=== PATIENT | male | born 1995 | race Caucasian/White ===

== ENCOUNTER 2017-10-02 14:09 | Inpatient (IN) | payer SELFPAY ==
[2017-10-02 15:52] LABS: Hematocrit 47.5 % (35.5-45.6); Hemoglobin 15.6 gm/dl (11.8-15.2); Mean Corpuscular HGB Conc 33 % (32-34); Mean Corpuscular Hemoglobin 29 pg (28-32); Mean Corpuscular Volume 89 fl (84-94); Platelet Count 226 K/mm3 (140-440); Red Blood Count 5.35 M/mm3 (3.65-5.03); Red Cell Distribution Width 13.4 % (13.2-15.2)
[2017-10-02 16:34] LABS: Alanine Aminotransferase 31 units/L (7-56); Albumin 4.8 g/dL (3.9-5); BUN/Creatinine Ratio 22; Blood Urea Nitrogen 20 mg/dL (9-20); Calcium 9.4 mg/dL (8.4-10.2); Hemolysis Index 12
[2017-10-02 17:32] LABS: Band Neutrophils # (Manual) 4.5 K/mm3; Basophils % (Manual) 0 % (0.0-1.8); Eosinophils % (Manual) 0 % (0.0-4.3); RBC Morphology Normal; Total Cells Counted 100
[2017-10-02] MEDS ORDERED: ZOFRAN IV ONE ×2 (18:36→19:05)
[2017-10-02] MEDS ORDERED: NACL 0.9% 1000 ML 1,000 ML IV ONE ×4 (18:36→22:18)
[2017-10-02] MEDS ORDERED: DILAUDID IV ONE ×3 (18:39→23:00)
[2017-10-02] MEDS ORDERED: BENADRYL IV ONE (19:05)
[2017-10-02] MEDS ORDERED: DILAUDID ONE (19:12)
[2017-10-02] MEDS ORDERED: ZOSYN/NS 4.5GM/100ML 4.5 GM/100 ML VIAL IV ONE (19:38)
[2017-10-02] MEDS ORDERED: BENADRYL ONE (21:24)
[2017-10-02] MEDS ORDERED: PEPCID IV ONE (21:24)
--- NOTE | 2017-10-02 22:03 | Emergency Department Report ---
HPI - General Chief Complaint: Abdominal Pain Time Seen by Provider: 10/02/17 18:41 - HPI HPI: The patient is a 22-year-old male who presents for evaluation of abdominal pain. The patient reports abdominal pain for the past one day, constant severe for the past 12 hours, 10/10 in severity, throbbing and sharp in quality, exacerbated with movement or bending over. He also reports associated nausea, intractable vomiting, and multiple episodes of loose watery stools. The patient denies fever, chills, night sweats, chest pain, dyspnea, cough, syncope, hemoptysis, blood in the stool, dark tarry stool, dysuria, hematuria, flank pain, inability to pass flatus. ED Past Medical Hx - Past Medical History Previous Medical History?: No - Surgical History Past Surgical History?: No - Social History Smoking Status: Never Smoker Substance Use Type: Marijuana ED Review of Systems ROS: Stated complaint: ABD PAIN AND PENIS PAIN Other details as noted in HPI Constitutional: denies: fever ENT: denies: throat or neck pain Respiratory: denies: cough, shortness of breath Cardiovascular: denies: chest pain Endocrine: denies unexplained weight loss or gain Gastrointestinal: reports abdominal pain, nausea Genitourinary: denies: dysuria Musculoskeletal: denies: leg swelling Skin: denies: rash Neurological: denies: headache Hematological/Lymphatic: denies: easy bleeding or easy bruising Psych: denies sadness or hopelessness Physical Exam - Physical Exam Vital Signs: Vital Signs 10/02/17 10/02/17 10/02/17 15:09 19:20 20:00 Temperature 97.9 F 99.9 F H Pulse Rate 114 H 120 H Respiratory 20 42 H 41 H Rate Blood Pressure 120/76 Blood Pressure 127/86 [Right] O2 Sat by Pulse 97 98 99 Oximetry Physical Exam: General: well-nourished, well-developed, no acute distress Head: Normocephalic, atraumatic Eyes: normal sclera ENT: Mucous membranes are pale and dry Neck: No neck stiffness, no cervical adenopathy Respiratory: Breath sounds equal bilaterally, no wheezing, rales, or rhonchi Cardio: S1 and S2 present, no murmurs, rubs, gallops, capillary refill is delayed Abdomen: Normoactive bowel sounds, soft abdomen, generalized tenderness to palpation present, + garding, no rebound tenderness Chest WALL/Back: No tenderness to palpation of the chest wall, no CVA tenderness with percussion Musc: No pitting edema Skin: No rash Neuro: no facial drooping, normal speech Psych: Normal affect ED Course Vital Signs 10/02/17 10/02/17 10/02/17 15:09 19:20 20:00 Temperature 97.9 F 99.9 F H Pulse Rate 114 H 120 H Respiratory 20 42 H 41 H Rate Blood Pressure 120/76 Blood Pressure 127/86 [Right] O2 Sat by Pulse 97 98 99 Oximetry ED Medical Decision Making - Lab Data Result diagrams: 10/02/17 15:32 10/02/17 15:32 - Medical Decision Making The patient was seen and examined by myself. The patient is placed on a telemetry monitor and continuous pulse ox. On initial evaluation, the patient was found to be in no distress. Evaluation orders are placed. IV access is established and the patient is given 2L normal saline fluid bolus and Zofran for nausea, and IV dilaudid for pain. Lab results acute exhibits elevated WBC of 20, elevated lactic acid of 8. Zosyn was ordered for treatment of suspected sepsis. CT scan abdomen and pelvis reveals appendicitis and free fluid in the abdomen. The on-call general surgeon Dr. Tan's contacted. He agreed to take the patient to the OR. The patient is admitted in serious condition. Critical care attestation.: If time is entered above; I have spent that time in minutes in the direct care of this critically ill patient, excluding procedure time. ED Disposition Clinical Impression: Appendicitis, acute, with peritonitis, Generalized abdominal pain, Severe sepsis, Nausea and vomiting in adult, Dehydration Disposition: OP ADMIT IP TO THIS HOSP Is pt being admited?: Yes Does the pt Need Aspirin: Yes Condition: Serious Referrals: PRIMARY CARE, [Primary Care Provider] - 3-5 Days Time of Disposition: 20:20
--- NOTE | 2017-10-02 22:04 | Cat Scan Report ---
FINAL REPORT PROCEDURE: CT ABDOMEN PELVIS W CON TECHNIQUE: Computerized axial tomography of the abdomen and pelvis was performed after the IV injection of iodinated nonionic contrast. HISTORY: abdominal pain COMPARISON: No prior studies are available for comparison. FINDINGS: Lower Lung metzger: No focal abnormality seen. Upper Abdomen: Liver density appears mildly diffusely decreased suggesting fatty infiltration. No discrete liver lesions are identified. The gallbladder, the adrenal glands, the pancreas and the spleen are unremarkable. Kidneys, Ureters and Urinary bladder: No abnormalities are identified. Retroperitoneum: Abdominal aorta appears normal. Nonspecific subcentimeter lymph nodes are seen in the retroperitoneum. No pathologically enlarged lymph nodes are identified. Bowel: There is no evidence of bowel obstruction. There is small to moderate amount of ascites collected in the right and left pericolonic gutters and extending into the lower pelvis. No free intraperitoneal gas is visualized. There is abnormal distension and thickening of the villalobos of the appendix with adjacent inflammatory change consistent with acute appendicitis. Discrete fluid collection to suggest an abscess is not visualized. Reproductive organs: The appendix is not appear to be enlarged. Other: No acute bony abnormalities are seen. IMPRESSION: There is abnormal distention and wall thickening seen in the appendix with adjacent inflammatory change consistent with acute appendicitis. There is small to moderate amount of ascites scattered throughout the pericolonic gutters and lower pelvis. I do not see a discrete fluid collection at this time to suggest an abscess. There is no free intraperitoneal gas. Liver density appears diffusely decreased suggesting fatty infiltration. No discrete liver lesions are identified. Critical value: These findings were discussed in detail with Dr. Shelton on 10/02/2017 at 10 p.m. Eastern Standard time.
[2017-10-02 23:21] LABS: INR 1.09 (0.87-1.13)
[2017-10-02 23:22] LABS: Partial Thromboplastin Time 29.1 Sec. (24.2-36.6)
--- NOTE | 2017-10-02 23:25 | XRay Report ---
FINAL REPORT PROCEDURE: XR CHEST 1V AP TECHNIQUE: Chest radiograph anteroposterior view. CPT 92091 HISTORY: preop COMPARISON: No prior studies are available for comparison. FINDINGS: Heart: Normal. Mediastinum/Vessels: Normal. Lungs/Pleural space: The lungs are hypoventilated. The diaphragms are mildly elevated. Lungs appear clear.. Bony thorax: No acute osseous abnormality. Life support devices: None. IMPRESSION: Lungs are mildly hypoventilated. No acute abnormalities are seen.
[2017-10-02 23:52] LABS: Bilirubin,Urine NEG (Negative); Blood,Urine SM (Negative); Color,Urine Straw (Yellow); Mucus,Urine FEW /HPF; Nitrite,Urine NEG (Negative); Protein,Urine <15 mg/dL mg/dL (Negative); Urobilinogen,Urine < 2.0 mg/dL (<2.0)
[2017-10-03] MEDS ORDERED: TYLENOL PO ONE (00:14)
[2017-10-03] MEDS ORDERED: NACL 0.9% 1000 ML 1,000 ML IV ONE (00:40)
--- NOTE | 2017-10-03 00:48 | History and Physical Report ---
History of Present Illness Date of examination: 10/03/17 Date of admission: 10/03/17 Chief complaint: Abdominal pain History of present illness: 22yo otherwise healthy male presents with acute onset of abdominal pain since 2am (10/02/17). reports that it was initially all over the abdomen and then localized to lower abdomen. +flatus. Hard BM previous night. No blood or dark stools. No diarrhea. No F/C. +poor appetite. No radiation of pain. Able to bend at hips without any problems. Past History Past Medical History: No medical history Past Surgical History: No surgical history Social history: denies: smoking (stopped 1 year ago), alcohol abuse Family history: no significant family history Medications and Allergies Allergies Allergy/AdvReac Type Severity Reaction Status Date / Time No Known Allergies Allergy Unverified 10/02/17 15:09 Home Medications Medication Instructions Recorded Confirmed Last Taken Type No Known Home Medications [No 10/03/17 10/03/17 Unknown History Reported Home Medications] Active Meds: Active Medications Sodium Chloride (Nacl 0.9% 1000 Ml) 1,000 mls @ 125 mls/hr IV ONCE ONE Stop: 10/03/17 08:39 None Review of Systems - Constitutional poor appetite, no fever, no chills, no sweats, no night sweats - EENT Ears, nose, mouth and throat: other (dry mouth and throat), no ear pain, no nasal congestion, no nasal discharge, no sinus pressure - Cardiovascular no chest pain, no shortness of breath - Respiratory no cough, no cough with sputum, no excessive sputum, no shortness of breath, no congestion - Gastrointestinal abdominal pain, loss of appetite, no diarrhea, no BRBPR, no melena, no hematochezia, no dyspepsia/bloating - Genitourinary no dysuria - Integumentary no rash - Neurological no head injury, no weakness, no syncope, no change in mentation, no confusion - Psychiatric no anxiety Exam Vital Signs Temp Pulse Resp BP Pulse Ox 97.9 F 114 H 20 120/76 97 10/02/17 15:09 10/02/17 15:09 10/02/17 15:09 10/02/17 15:09 10/02/17 15:09 - General physical appearance Positive: well developed, well nourished, no distress, no pain - Eyes Positive: normal occular movement - ENT Positive: normal pinna, other (dry oral mucosa) - Respiratory Positive: normal expansion, normal respiratory effort, clear to auscultation - Cardiovascular Rhythm: other (tachycardic) - Abdomen Abdomen: Present: soft, tender (most in the RLQ. some tenderness noted throughout, decreased when patient relaxed abdomen), bowel sounds normal, guarding (voluntary), other (no Rovsings. No pelvic shake tenderness). Absent: distended, rigid - Genitourinary Male Genitourinary: deferred - Neurologic Neurologic: alert and oriented to time, place and person, motor strength and sensation are grossly intact - Psychiatric Psychiatric: appropriate mood/affect, intact judgment & insight, cooperative Results - Labs 10/02/17 15:32 10/02/17 15:32 Abnormal lab results 10/02/17 10/02/17 10/02/17 Range/Units 15:32 15:32 18:42 WBC 20.4 H (4.5-11.0) K/mm3 RBC 5.35 H (3.65-5.03) M/mm3 Hgb 15.6 H (11.8-15.2) gm/dl Hct 47.5 H (35.5-45.6) % Lymphocytes % (Manual) 4.0 L (13.4-35.0) % Seg Neutrophils # Man 14.1 H (1.8-7.7) K/mm3 Lymphocytes # (Manual) 0.8 L (1.2-5.4) K/mm3 Chloride 95.9 L (98-107) mmol/L Glucose 160 H (75-100) mg/dL Lactic Acid 8.30 H* (0.7-2.0) mmol/L Total Protein 8.4 H (6.3-8.2) g/dL Ur Specific [place] (1.003-1.030) 10/02/17 10/02/17 Range/Units 22:05 23:01 WBC (4.5-11.0) K/mm3 RBC (3.65-5.03) M/mm3 Hgb (11.8-15.2) gm/dl Hct (35.5-45.6) % Lymphocytes % (Manual) (13.4-35.0) % Seg Neutrophils # Man (1.8-7.7) K/mm3 Lymphocytes # (Manual) (1.2-5.4) K/mm3 Chloride (98-107) mmol/L Glucose (75-100) mg/dL Lactic Acid 4.30 H* (0.7-2.0) mmol/L Total Protein (6.3-8.2) g/dL Ur Specific [place] > 1.059 H (1.003-1.030) Diabetes panel 10/02/17 Range/Units 15:32 Sodium 138 (137-145) mmol/L Potassium 4.0 (3.6-5.0) mmol/L Chloride 95.9 L (98-107) mmol/L Carbon Dioxide 25 (22-30) mmol/L BUN 20 (9-20) mg/dL Creatinine 0.9 (0.8-1.5) mg/dL Glucose 160 H (75-100) mg/dL Calcium 9.4 (8.4-10.2) mg/dL AST 22 (5-40) units/L ALT 31 (7-56) units/L Alkaline Phosphatase 57 (35-129) units/L Total Protein 8.4 H (6.3-8.2) g/dL Albumin 4.8 (3.9-5) g/dL Calcium panel 10/02/17 Range/Units 15:32 Calcium 9.4 (8.4-10.2) mg/dL Albumin 4.8 (3.9-5) g/dL Pituitary panel 10/02/17 Range/Units 15:32 Sodium 138 (137-145) mmol/L Potassium 4.0 (3.6-5.0) mmol/L Chloride 95.9 L (98-107) mmol/L Carbon Dioxide 25 (22-30) mmol/L BUN 20 (9-20) mg/dL Creatinine 0.9 (0.8-1.5) mg/dL Glucose 160 H (75-100) mg/dL Calcium 9.4 (8.4-10.2) mg/dL Adrenal panel 10/02/17 Range/Units 15:32 Sodium 138 (137-145) mmol/L Potassium 4.0 (3.6-5.0) mmol/L Chloride 95.9 L (98-107) mmol/L Carbon Dioxide 25 (22-30) mmol/L BUN 20 (9-20) mg/dL Creatinine 0.9 (0.8-1.5) mg/dL Glucose 160 H (75-100) mg/dL Calcium 9.4 (8.4-10.2) mg/dL Total Bilirubin 0.80 (0.1-1.2) mg/dL AST 22 (5-40) units/L ALT 31 (7-56) units/L Alkaline Phosphatase 57 (35-129) units/L Total Protein 8.4 H (6.3-8.2) g/dL Albumin 4.8 (3.9-5) g/dL - Imaging CT scan - abdomen: report reviewed (Agrees with assessment. Small amount of fluid in abdomen. No free air. Appendix is retrocecal.), image reviewed Assessment and Plan - Patient Problems (1) Appendicitis, acute, with peritonitis Onset Date: ~10/02/17 Current Visit: Yes Status: Acute Plan to address problem: Pt in need of lap appy. Discussed procedure, risks, and benefits. Discussed alternatives. Recommend surgery after patient resuscitated. I think he will do better rochelle-operatively if we resuscitate him first. I think he is stable enough for that. All questions answered. Consent obtained. (2) Dehydration Onset Date: ~10/02/17 Current Visit: Yes Status: Acute Plan to address problem: Have asked Dr. Shelton to give additional fluid. He is responding with decrease in lactate. His labs suggest very severe dehydration. Would benefit from resuscitation prior to surgery. Will run IVF at 250cc/hr. Explained to patient.
[2017-10-03] MEDS ORDERED: TYLENOL ONE (01:45)
[2017-10-03] MEDS ORDERED: NACL 0.9% 1000 ML 2,000 ML ONE (01:49)
[2017-10-03] MEDS ORDERED: NACL 0.9% 1000 ML 1,000 ML IV SCH ×2 (02:16→15:00)
[2017-10-03] MEDS: TORADOL IV SCH ×4 (03:07→22:00)
[2017-10-03] MEDS: ZOSYN/NS 4.5GM/100ML 4.5 GM/100 ML VIAL IV SCH ×3 (06:29→22:30)
--- NOTE | 2017-10-03 08:38 | Anesthesia Day of Surgery ---
Anesthesia Day of Surgery - Day of Surgery Patient Examined: Yes Patient H&P Reviewed: Yes Patient is NPO: Yes
--- NOTE | 2017-10-03 08:38 | Anesthesia Consultation ---
Anesthesia Consult and Med Hx Date of service: 10/03/17 - Airway Anesthetic Teeth Evaluation: Good ROM Head & Neck: Adequate Mental/Hyoid Distance: Adequate Mallampati Class: Class II Intubation Access Assessment: Good - Pulmonary Exam CTA: Yes - Cardiac Exam Cardiac Exam: No Murmur - Pre-Operative Health Status ASA Pre-Surgery Classification: ASA1 Proposed Anesthetic Plan: General - Pulmonary Hx Asthma: No COPD: No Hx Pneumonia: No - Endocrine Hx End Stage Renal Disease: No
[2017-10-03] MEDS ORDERED: VERSED IV NR (09:00)
[2017-10-03] MEDS ORDERED: PEPCID PO NR (09:00)
--- NOTE | 2017-10-03 09:12 | Progress Note ---
Assessment and Plan - Patient Problems (1) Appendicitis, acute, with peritonitis Onset Date: ~10/02/17 Current Visit: Yes Status: Acute Plan to address problem: to OR this Am. Delayed due to anesthesia issue. Pt doing ok. Answered questions. He is nervous about surgery. (2) Dehydration Onset Date: ~10/02/17 Current Visit: Yes Status: Acute Plan to address problem: Hydrated well overnight. Looks better. reassess after surgery Subjective Date of service: 10/03/17 Patient Reports: Positive: no new complaints, feels better (pain meds helped a lot), voiding w/o difficulty (reports that he was able to finally void easily) Objective Vital Signs - 12hr 10/02/17 10/02/17 10/02/17 21:32 22:00 22:30 Temperature Pulse Rate 126 H 132 H Respiratory 37 H 26 H Rate Blood Pressure 133/87 133/87 133/87 O2 Sat by Pulse 98 98 Oximetry 10/02/17 10/02/17 10/03/17 23:00 23:31 00:01 Temperature Pulse Rate 125 H 125 H 131 H Respiratory 40 H 19 18 Rate Blood Pressure 133/87 133/87 133/87 O2 Sat by Pulse 94 94 Oximetry 10/03/17 10/03/17 10/03/17 00:17 00:31 01:01 Temperature Pulse Rate 130 H 130 H 130 H Respiratory 24 19 27 H Rate Blood Pressure 133/87 133/87 133/87 O2 Sat by Pulse 95 94 95 Oximetry 10/03/17 10/03/17 10/03/17 01:31 02:01 08:10 Temperature 98 F Pulse Rate 129 H 123 H 90 Respiratory 21 17 22 Rate Blood Pressure 133/87 133/87 105/62 O2 Sat by Pulse 94 94 99 Oximetry 10/03/17 08:37 Temperature 98 F Pulse Rate 96 H Respiratory 22 Rate Blood Pressure 105/62 O2 Sat by Pulse 99 Oximetry - General physical appearance well developed, well nourished, no distress, no pain, other (nervous) - Eyes normal occular movement - Respiratory normal expansion, normal respiratory effort - Psychiatric oriented to time, oriented to person, oriented to place, speech is normal - Labs 10/02/17 15:32 10/02/17 15:32 Diabetes panel 10/02/17 Range/Units 15:32 Sodium 138 (137-145) mmol/L Potassium 4.0 (3.6-5.0) mmol/L Chloride 95.9 L (98-107) mmol/L Carbon Dioxide 25 (22-30) mmol/L BUN 20 (9-20) mg/dL Creatinine 0.9 (0.8-1.5) mg/dL Glucose 160 H (75-100) mg/dL Calcium 9.4 (8.4-10.2) mg/dL AST 22 (5-40) units/L ALT 31 (7-56) units/L Alkaline Phosphatase 57 (35-129) units/L Total Protein 8.4 H (6.3-8.2) g/dL Albumin 4.8 (3.9-5) g/dL Calcium panel 10/02/17 Range/Units 15:32 Calcium 9.4 (8.4-10.2) mg/dL Albumin 4.8 (3.9-5) g/dL Pituitary panel 10/02/17 Range/Units 15:32 Sodium 138 (137-145) mmol/L Potassium 4.0 (3.6-5.0) mmol/L Chloride 95.9 L (98-107) mmol/L Carbon Dioxide 25 (22-30) mmol/L BUN 20 (9-20) mg/dL Creatinine 0.9 (0.8-1.5) mg/dL Glucose 160 H (75-100) mg/dL Calcium 9.4 (8.4-10.2) mg/dL Adrenal panel 10/02/17 Range/Units 15:32 Sodium 138 (137-145) mmol/L Potassium 4.0 (3.6-5.0) mmol/L Chloride 95.9 L (98-107) mmol/L Carbon Dioxide 25 (22-30) mmol/L BUN 20 (9-20) mg/dL Creatinine 0.9 (0.8-1.5) mg/dL Glucose 160 H (75-100) mg/dL Calcium 9.4 (8.4-10.2) mg/dL Total Bilirubin 0.80 (0.1-1.2) mg/dL AST 22 (5-40) units/L ALT 31 (7-56) units/L Alkaline Phosphatase 57 (35-129) units/L Total Protein 8.4 H (6.3-8.2) g/dL Albumin 4.8 (3.9-5) g/dL
[2017-10-03] MEDS ORDERED: XYLOCAINE 1% 20 mL ONE (09:29)
[2017-10-03] MEDS ORDERED: MARCAINE 0.5% 30 ML INFILTRATI ONE (09:30)
[2017-10-03] MEDS ORDERED: SUBLIMAZE ONE (10:02)
[2017-10-03] MEDS ORDERED: DIPRIVAN 10 MG/ML IV ONE (10:02)
[2017-10-03] MEDS ORDERED: MARCAINE 0.5% INFILTRATI ONE (10:51)
[2017-10-03] MEDS ORDERED: NACL 0.9% IR ONE ×4 (10:52→10:56)
[2017-10-03] MEDS ORDERED: XYLOCAINE 1% 20 mL INFILTRATI ONE (10:52)
[2017-10-03] MEDS ORDERED: NEO SYNEPHRINE ONE (10:58)
[2017-10-03] MEDS ORDERED: XYLOCAINE MPF 2% ONE (10:58)
[2017-10-03] MEDS ORDERED: DECADRON ONE (10:59)
[2017-10-03] MEDS ORDERED: ZOFRAN ONE (10:59)
[2017-10-03] MEDS ORDERED: ROBINUL ONE (10:59)
[2017-10-03] MEDS ORDERED: NEOSTIGMINE ONE (10:59)
[2017-10-03] MEDS ORDERED: ZEMURON IV ONE (10:59)
[2017-10-03] MEDS ORDERED: NORCO 5/325 PO PRN (12:50)
[2017-10-03] MEDS: DILAUDID IV PRN ×3 (14:17→21:28)
--- NOTE | 2017-10-03 14:36 | Progress Note ---
Assessment and Plan - Patient Problems (1) Appendicitis, acute, with peritonitis Onset Date: ~10/02/17 Current Visit: Yes Status: Acute Plan to address problem: s/p lap appy and partial cecectomy. Pt stable. Advance diet as tolerated. Encourage ambulation and IS. continue Abx. Monitor DAYDAY drain (2) Dehydration Onset Date: ~10/02/17 Current Visit: Yes Status: Acute Plan to address problem: Cont IVF, but slow down rate. d/c when taking PO well. BMP in AM Subjective Date of service: 10/03/17 Narrative: reports incisional pain. Pre-op abdominal pain is better Objective Vital Signs - 12hr 10/03/17 10/03/17 10/03/17 08:10 08:37 12:37 Temperature 98 F 98 F 98.6 F Pulse Rate 90 96 H 84 Respiratory 22 22 12 Rate Blood Pressure 105/62 105/62 114/67 O2 Sat by Pulse 99 99 100 Oximetry 10/03/17 10/03/17 10/03/17 12:40 12:45 12:50 Temperature Pulse Rate 83 79 80 Respiratory 14 16 14 Rate Blood Pressure 116/68 121/70 118/70 O2 Sat by Pulse 99 100 100 Oximetry 10/03/17 10/03/17 10/03/17 13:00 13:15 13:30 Temperature Pulse Rate 88 87 86 Respiratory 13 14 14 Rate Blood Pressure 112/69 102/71 120/77 O2 Sat by Pulse 96 94 98 Oximetry 10/03/17 10/03/17 13:49 13:50 Temperature 97.2 F L 97.2 F L Pulse Rate 83 84 Respiratory 18 18 Rate Blood Pressure 106/71 106/71 O2 Sat by Pulse 96 96 Oximetry - General physical appearance well developed, well nourished, no distress, other (appears tired) - Eyes normal occular movement - Respiratory normal respiratory effort - Labs 10/02/17 15:32 10/02/17 15:32 Diabetes panel 10/02/17 Range/Units 15:32 Sodium 138 (137-145) mmol/L Potassium 4.0 (3.6-5.0) mmol/L Chloride 95.9 L (98-107) mmol/L Carbon Dioxide 25 (22-30) mmol/L BUN 20 (9-20) mg/dL Creatinine 0.9 (0.8-1.5) mg/dL Glucose 160 H (75-100) mg/dL Calcium 9.4 (8.4-10.2) mg/dL AST 22 (5-40) units/L ALT 31 (7-56) units/L Alkaline Phosphatase 57 (35-129) units/L Total Protein 8.4 H (6.3-8.2) g/dL Albumin 4.8 (3.9-5) g/dL Calcium panel 10/02/17 Range/Units 15:32 Calcium 9.4 (8.4-10.2) mg/dL Albumin 4.8 (3.9-5) g/dL Pituitary panel 10/02/17 Range/Units 15:32 Sodium 138 (137-145) mmol/L Potassium 4.0 (3.6-5.0) mmol/L Chloride 95.9 L (98-107) mmol/L Carbon Dioxide 25 (22-30) mmol/L BUN 20 (9-20) mg/dL Creatinine 0.9 (0.8-1.5) mg/dL Glucose 160 H (75-100) mg/dL Calcium 9.4 (8.4-10.2) mg/dL Adrenal panel 10/02/17 Range/Units 15:32 Sodium 138 (137-145) mmol/L Potassium 4.0 (3.6-5.0) mmol/L Chloride 95.9 L (98-107) mmol/L Carbon Dioxide 25 (22-30) mmol/L BUN 20 (9-20) mg/dL Creatinine 0.9 (0.8-1.5) mg/dL Glucose 160 H (75-100) mg/dL Calcium 9.4 (8.4-10.2) mg/dL Total Bilirubin 0.80 (0.1-1.2) mg/dL AST 22 (5-40) units/L ALT 31 (7-56) units/L Alkaline Phosphatase 57 (35-129) units/L Total Protein 8.4 H (6.3-8.2) g/dL Albumin 4.8 (3.9-5) g/dL
--- NOTE | 2017-10-03 21:02 | Post Anesthesia Evaluation ---
- Post Anesthesia Evaluation Patient Participated: Yes Airway Patent: Yes Stable Respiratory Function: Yes Nausea/Vomiting: No Temp > 96.8F: Yes Pain Manageable: Yes Adequeate Hydration: Yes Anesthesia Complications: No Block Receding Appropriately: Not Applicable Patient on Ventilator: No
[2017-10-03] MEDS: ZOFRAN IV PRN (21:28)
[2017-10-03] MEDS: LOVENOX SUB-Q SCH (21:34)
--- NOTE | 2017-10-03 21:54 | Operative Report ---
PREOPERATIVE DIAGNOSIS: Acute appendicitis. POSTOPERATIVE DIAGNOSIS: Acute ruptured appendicitis with purulent fluid in the abdomen. PROCEDURES: 1. Laparoscopic appendectomy. 2. Laparoscopic partial cecectomy. ATTENDING PHYSICIAN: Izabela Tan MD ANESTHESIA: General. ESTIMATED BLOOD LOSS: 25 mL. FLUIDS: 1 liter. URINE OUTPUT: 150 mL. FINDINGS: Thickened inflamed appendix with purulent discharge on the surface. There was a necrotic base with perforation measuring approximately 1 cm. There is a moderate amount of purulent fluid throughout the abdomen. The rest of the abdomen was normal. Cecum appeared mildly inflamed at the base. SPECIMEN: Appendix and portion of cecum. DRAINS: DAYDAY drain. COMPLICATIONS: None. DISPOSITION: Stable, transferred to Recovery Room. INDICATIONS: This is a 22-year-old male who presented with about a 1-day history of acute onset of abdominal pain that progressively got worse. He presented to the Emergency Room. A CT scan showed a thickened appendix. The patient appeared severely dehydrated and was in need of resuscitation. As the patient was overall fairly stable, we elected to resuscitate the patient and then proceed with surgery today. The risks, benefits were explained in detail to the patient. Risks include were not limited to infection, bleeding, pain, injury to structures, possible need for further surgery in the future. The patient understood and consented. OPERATIVE NOTE: The patient was brought to the operating room and placed on the table in supine position. After adequate general anesthesia was given, the patient was prepped and draped in the usual sterile fashion. Zosyn has already been given. He received his recent dose on the floor. SCDs were in place. I began by insufflating the abdomen using a Veress needle, it was inserted in the left upper quadrant approximately 3 fingerbreadths below the costal margin. I was able to insufflate on the first attempt. Then, using the Optiview technique, I placed a 5 mm port in the left lower quadrant. I entered the peritoneal cavity safely. I examined the Veress needle location. There was no evidence of any injury to the underlying structures. I then proceeded to place a 5 mm port at the umbilicus and a 10 mm port at the suprapubic location in the midline. I began initially by trying to irrigate and suction out some of the purulent fluid. We then proceeded to evaluate the cecum and the appendix, it was lateral and partially retrocecal in its position. I was able to mobilize it by dissecting through the mesoappendix using a LigaSure device. This was done successfully without any evidence of any bleeding. Once I reached the base, I then used a 45 mm GI Blue laparoscopic stapler to divide the base. Unfortunately, due to the thickened tissue, it is difficult to get a portion of the cecum at the same time. Therefore, I divided the appendix at the base using the blue load. I then used two more loads to remove a portion of the cecum that had the necrotic appendiceal base that extended onto the cecum as well as the perforation site. I was able to remove a small portion of cecum, taking care to make sure that I was not near the ileocecal valve and I was lateral to it. Examination of the staple line showed it to be relatively straight. There was no significant angulations from the two staple sites. It was hemostatic. There was one portion of the mesoappendix that did have some pulsation. I recauterized that with the LigaSure device. Everything looked hemostatic and intact. I thoroughly washed out the abdomen with 5 liters of crystalloid fluid. We turned the patient in multiple different directions to try to get all the fluid collections. At the end, it appeared that all 4 quadrants had a fairly clean fluid as a precaution. Due to his high risk for abscess formation, I left a drain in the pelvis and brought out the left lower quadrant. I closed the fascia at the suprapubic site with a fascial closure device using 2-0 Vicryl stitches. It was airtight. At the end, I injected an additional local. I used a combination of 1% lidocaine and 0.5% Marcaine that I injected before insertion of ports and then at the very end. Everything looked very good at the end of the case. I was very pleased compared to what we started with. He is at high risk for subsequent intra-abdominal infection due to the perforated appendicitis as well as the extensive contamination with the fluid. I will continue antibiotics for now until we see that he is at least afebrile and without a white count for 48 hours. All this has been explained to the patient and the parents. All counts were correct at the end of the case. JOB# [id number] FELICITA/ELENA
[2017-10-04] MEDS: TORADOL IV SCH ×4 (02:10→22:54)
[2017-10-04] MEDS: ZOFRAN IV PRN (06:30)
[2017-10-04] MEDS: DILAUDID IV PRN (06:40)
[2017-10-04] MEDS: ZOSYN/NS 4.5GM/100ML 4.5 GM/100 ML VIAL IV SCH ×3 (06:59→22:55)
[2017-10-04 08:15] LABS: Hematocrit 35.8 % (35.5-45.6); Mean Corpuscular HGB Conc 34 % (32-34); Mean Corpuscular Hemoglobin 30 pg (28-32); Mean Corpuscular Volume 89 fl (84-94); Platelet Count 135 K/mm3 (140-440); Red Blood Count 4.02 M/mm3 (3.65-5.03); Red Cell Distribution Width 13.1 % (13.2-15.2)
[2017-10-04 08:48] LABS: BUN/Creatinine Ratio 18; Blood Urea Nitrogen 14 mg/dL (9-20); Calcium 8.3 mg/dL (8.4-10.2); Hemolysis Index 2
--- NOTE | 2017-10-04 10:30 | Progress Note ---
Assessment and Plan - Patient Problems (1) Appendicitis, acute, with peritonitis Onset Date: ~10/02/17 Current Visit: Yes Status: Acute Plan to address problem: s/p lap appy and partial cecectomy POD#1. Pt stable. Advance diet as tolerated. Will advance to Full Liquids today Encourage ambulation and IS. continue Abx. Would like to see WBC normalize. Will check again on Monday Monitor DAYDAY drain (2) Dehydration Onset Date: ~10/02/17 Current Visit: Yes Status: Acute Plan to address problem: Much improved. will d/c IVF and allow patient to hydrate by mouth. Subjective Date of service: 10/04/17 Patient Reports: Positive: feels better (Feels much better compared to night of admission. Able to walk. Would like to have more to drink. Would like to go home soon. Able to urinate normally after straight cath last night. ), pain is less, tolerating liquids well. Negative: nausea, vomiting, fever Objective Vital Signs - 12hr 10/04/17 10/04/17 10/04/17 00:05 05:29 08:11 Temperature 98.1 F 98.2 F 98.0 F Pulse Rate 118 H 111 H 98 H Respiratory 16 16 20 Rate Blood Pressure 113/70 114/66 Blood Pressure 98/52 [Right] O2 Sat by Pulse 95 95 97 Oximetry - General physical appearance well developed, well nourished, no distress, no pain, other (Looks much better. appears more relaxed and with more energy) - Eyes normal occular movement - Respiratory normal respiratory effort - Abdomen soft (much softer than before), bowel sounds hypoactive, distended (mild), not guarding, other (Incisions C/D/I. Abd much softer. Much less tender. DAYDAY with serosang, slightly thick fluid. No purulent appearance. ) - Neurologic normal coordination - Psychiatric oriented to time, oriented to person, oriented to place, speech is normal, memory intact - Labs 10/04/17 07:28 10/04/17 07:28 Diabetes panel 10/04/17 Range/Units 07:28 Sodium 140 (137-145) mmol/L Potassium 3.8 (3.6-5.0) mmol/L Chloride 103.6 (98-107) mmol/L Carbon Dioxide 23 (22-30) mmol/L BUN 14 (9-20) mg/dL Creatinine 0.8 (0.8-1.5) mg/dL Glucose 115 H (75-100) mg/dL Calcium 8.3 L (8.4-10.2) mg/dL Calcium panel 10/04/17 Range/Units 07:28 Calcium 8.3 L (8.4-10.2) mg/dL Pituitary panel 10/04/17 Range/Units 07:28 Sodium 140 (137-145) mmol/L Potassium 3.8 (3.6-5.0) mmol/L Chloride 103.6 (98-107) mmol/L Carbon Dioxide 23 (22-30) mmol/L BUN 14 (9-20) mg/dL Creatinine 0.8 (0.8-1.5) mg/dL Glucose 115 H (75-100) mg/dL Calcium 8.3 L (8.4-10.2) mg/dL Adrenal panel 10/04/17 Range/Units 07:28 Sodium 140 (137-145) mmol/L Potassium 3.8 (3.6-5.0) mmol/L Chloride 103.6 (98-107) mmol/L Carbon Dioxide 23 (22-30) mmol/L BUN 14 (9-20) mg/dL Creatinine 0.8 (0.8-1.5) mg/dL Glucose 115 H (75-100) mg/dL Calcium 8.3 L (8.4-10.2) mg/dL
[2017-10-04] MEDS: LACTINEX PO SCH ×2 (13:30→22:54)
[2017-10-04] MEDS: LOVENOX SUB-Q SCH (22:54)
[2017-10-05] MEDS: TORADOL IV SCH ×4 (03:12→23:39)
[2017-10-05] MEDS: ZOSYN/NS 4.5GM/100ML 4.5 GM/100 ML VIAL IV SCH ×3 (05:28→23:34)
[2017-10-05] MEDS: LACTINEX PO SCH (09:47)
--- NOTE | 2017-10-05 10:27 | Progress Note ---
Assessment and Plan - Patient Problems (1) Appendicitis, acute, with peritonitis Onset Date: ~10/02/17 Current Visit: Yes Status: Acute Plan to address problem: s/p lap appy and partial cecectomy POD#2. Pt HD stable. I think that his is pain is related to lovenox injection and minimal use of pain meds. Will give pain meds this AM and reassess later today. have to be worried about abscess development as he is at high risk from his perforation/ contamination. His hemodynamics, drain output, vitals, return of bowel function , and verbal report of doing better seem to go against abscess formation. If there is still a concern later today, will consider new labs and possibly CT scan. Continue Full Liquids for now. Encourage ambulation and IS. continue Abx. Would like to see WBC normalize. Will check again on Monday Monitor DAYDAY drain (2) Dehydration Onset Date: ~10/02/17 Current Visit: Yes Status: Resolved Subjective Date of service: 10/05/17 Patient Reports: Positive: feels better (compared to admision and yesterday. reports that pain on left side is better.), still having pain (mainly in RLQ. occurred after SQ injection in RLQ last night. has only used pain meds once in 24 hours. nothing since last night. ), tolerating liquids well (began to have diarrhea after having milk), voiding w/o difficulty, flatus, diarrhea (reports that it is frequent and black. Not tarry or exceptionally foul smelling. occurs with urination), other (still feels slightly bloated). Negative: blood in stool , nausea, vomiting, shortness of breath, fever Objective Vital Signs - 12hr 10/04/17 10/04/17 10/04/17 22:54 23:13 23:24 Temperature 100.1 F H Pulse Rate 111 H Respiratory 20 22 20 Rate Respiratory Rate [Abdomen] Blood Pressure 130/82 O2 Sat by Pulse 97 Oximetry 10/05/17 10/05/17 10/05/17 02:51 02:52 03:12 Temperature Pulse Rate Respiratory 20 20 Rate Respiratory 20 Rate [Abdomen] Blood Pressure O2 Sat by Pulse 100 Oximetry 10/05/17 07:54 Temperature 99.6 F Pulse Rate 89 Respiratory 20 Rate Respiratory Rate [Abdomen] Blood Pressure 128/83 O2 Sat by Pulse 95 Oximetry - General physical appearance well developed, well nourished, no distress (easily awaken from sleep), no pain - Eyes normal occular movement - Respiratory normal expansion, normal respiratory effort - Abdomen soft, tender (primarily in RLQ. No bruising noted in RLQ. Other areas of abdomen cause referred pain to RLQ. No significant tenderness in pelvic area), bowel sounds normal (better than yesterday), distended (mild (unchanged from yesterday)), not guarding, not rigid, other (DAYDAY has minimal drainage that is thin and is dark maroon in appearance. Does not appear like GI contents) - Psychiatric oriented to time, oriented to person, oriented to place, speech is normal, memory intact - Labs 10/04/17 07:28 10/04/17 07:28
--- NOTE | 2017-10-05 14:29 | Progress Note ---
Assessment and Plan - Patient Problems (1) Appendicitis, acute, with peritonitis Onset Date: ~10/02/17 Current Visit: Yes Status: Acute Plan to address problem: Pt is much better compared to the morning. The pain pills appear to have helped. Abdominal exam is not concerning anymore. Literature review revealed that lactobacillus can cause diarrhea in some individuals. Start of med and diarrhea are temporally correlated. Will stop med now. Continue routine care. Subjective Patient Reports: Positive: feels better, pain is less (pain is much better after pain pill. Able to sit in chair which helped back pain), diarrhea ( continuing. primarily water with milk smell. still black in appearance. Not tarry. No thickness) Objective Vital Signs - 12hr 10/05/17 10/05/17 10/05/17 02:51 02:52 03:12 Temperature Pulse Rate Respiratory 20 20 Rate Respiratory 20 Rate [Abdomen] Blood Pressure O2 Sat by Pulse 100 Oximetry 10/05/17 10/05/17 07:54 12:42 Temperature 99.6 F 98.7 F Pulse Rate 89 73 Respiratory 20 20 Rate Respiratory Rate [Abdomen] Blood Pressure 128/83 107/63 O2 Sat by Pulse 95 99 Oximetry - General physical appearance well developed, well nourished, no distress, no pain, other (looks better. Definitely does not appear sick) - Eyes normal occular movement - Respiratory normal expansion, normal respiratory effort - Abdomen soft, tender (only tender near right groin. RLQ is non-tender now even with deeper pressure. The rest of the abdomen is non-tender now. ), bowel sounds normal, not rebound, not guarding, not rigid - Psychiatric oriented to time, oriented to person, oriented to place, speech is normal - Labs 10/04/17 07:28 10/04/17 07:28
[2017-10-05] MEDS: LOVENOX SUB-Q SCH (23:33)
[2017-10-06] MEDS: TORADOL IV SCH ×3 (03:14→16:28)
[2017-10-06] MEDS: ZOSYN/NS 4.5GM/100ML 4.5 GM/100 ML VIAL IV SCH ×2 (06:08→13:10)
[2017-10-06 08:09] LABS: Basophils % (Auto) 0.3 % (0.0-1.8); Eosinophils # (Auto) 0.1 K/mm3 (0.0-0.4); Eosinophils % (Auto) 0.6 % (0.0-4.3); Hematocrit 35.8 % (35.5-45.6); Hemoglobin 12.1 gm/dl (11.8-15.2); Lymphocytes # (Auto) 1.1 K/mm3 (1.2-5.4); Lymphocytes % (Auto) 10.9 % (13.4-35.0); Mean Corpuscular HGB Conc 34 % (32-34); Mean Corpuscular Hemoglobin 29 pg (28-32); Mean Corpuscular Volume 87 fl (84-94); Monocytes # (Auto) 1.1 K/mm3 (0.0-0.8); Monocytes % (Auto) 10.8 % (0.0-7.3); Platelet Count 173 K/mm3 (140-440); Red Blood Count 4.13 M/mm3 (3.65-5.03); Red Cell Distribution Width 12.9 % (13.2-15.2)
--- NOTE | 2017-10-06 11:07 | Discharge Summary ---
Providers - Providers Date of Admission: 10/03/17 00:41 Date of discharge: 10/06/17 Attending physician: MINERVA STEINER MD Primary care physician: WINE FERMENTER Hospitalization Reason for admission: Acute appendicitis Condition: Serious Pertinent studies: Ct scan - appendicitis Procedures: lap appy with partial cecectomy Hospital course: Pt had an uneventful hospital course. He was treated pre-operatively and post- operatively with Zosyn. Able to advance diet without any problems. had brief episode of diarrhea that was clearly related to lactobacillus. Pt was on post- op Lovenox prophylaxis. Drain had minimal output and was removed on day of discharge. Pain was minimal. Bowel function had returned. Disposition: - TO HOME OR SELFCARE Time spent for discharge: 45min - Discharge Diagnoses (1) Appendicitis, acute, with peritonitis Status: Acute Comment: Path showed acute suppurative appendicitis Core Measure Documentation - Palliative Care Palliative Care/ Comfort Measures: Not Applicable - Core Measures Any of the following diagnoses?: none Exam - Constitutional Vitals: Temp Pulse Resp BP Pulse Ox 98.1 F 65 20 116/73 96 10/06/17 07:35 10/06/17 07:35 10/06/17 07:35 10/06/17 07:35 10/06/17 07:35 General appearance: Present: no acute distress, well-nourished - EENT Eyes: Present: EOM intact ENT: hearing intact - Respiratory Respiratory effort: normal - Abdominal General gastrointestinal: Present: soft, non-tender, non-distended, other ( Incisions C/D/I. DAYDAY with minimal thin brownish fluid (old blood appearance)) - Integumentary Integumentary: Present: clear, warm, dry - Psychiatric Psychiatric: appropriate mood/affect, intact judgment & insight Plan Weight Bearing Status: Full Weight Bearing Diet: regular Wound: open to air Special Instructions: no heavy lifting, other (May shower in 2 days. Pat dry wounds. ) Follow up with: MINERVA STEINER MD [Staff Physician] - 7 Days PRIMARY CARE, [Primary Care Provider] - 3-5 Days Prescriptions: Amoxicillin/Potassium Clav [Augmentin 500-125 Tablet] 1 each PO BID #10 tablet HYDROcodone/APAP 5-325 [[place] 5-325 mg TAB] 2 each PO Q6H PRN #20 tablet PRN Reason: Pain, Moderate (4-6)
[2017-10-06 15:47] VITALS: BP 123/76
== END 2017-10-06 16:45 | disposition home or self-care (01) | DRG 853 ==
LOC: ED 14:09 → 3A 10-03 00:41
PROVIDERS: ADMIT Surgery; ATTEND Surgery
PROC: 0DTJ4ZZ Resection of Appendix, Percutaneous Endoscopic Approach (ICD-10-PCS; principal; 2017-10-03)
PROC: 0DBH4ZZ Excision of Cecum, Percutaneous Endoscopic Approach (ICD-10-PCS; 2017-10-03)
DX: A41.9 Sepsis, unspecified organism (principal); K35.3 Acute appendicitis with localized peritonitis; E86.0 Dehydration; R65.20 Severe sepsis without septic shock
CPT/HCPCS: 36415; 71045; 74177; 80048; 80053; 81001; 82140; 83690; 85007; 85025; 85027; 85610; 85730; 86850; 86900; 86901; 87040; 87086; 88304; 93005; 93010; A4217; J1100; J1170; J1200; J1650; J1885; J2250; J2370; J2405; J2543; J2704; J2710; J2930; J3010; J7030; Q9967